=== PATIENT | female | born 1980 | race Two or more races ===

== ENCOUNTER 2023-02-27 15:10 | Inpatient (IN) | payer SELFPAY ==
[~2023-02-27] VITALS: Ht 160 cm; Wt 68.7 kg
[2023-02-27] MEDS ORDERED: DIPH25CA85 PO (15:14)
[2023-02-27] MEDS ORDERED: PRED-554 PO (15:14)
[2023-02-27] MEDS ORDERED: MethylPREDNISolone SOD SUCC 125 MG/2 ML VIAL IVP ONE (15:15)
[2023-02-27] MEDS ORDERED: EPINEPHrine 1:1,000 [1 MG/ML] VIAL IM ONE ×2 (15:15→18:45)
[2023-02-27] MEDS ORDERED: DiphenhydrAMINE HCL 50 MG/ML VIAL IVP ONE (15:15)
[2023-02-27] MEDS ORDERED: FAMOTIDINE 20 MG/2 ML VIAL IVP ONE (15:15)
[2023-02-27] MEDS ORDERED: MethylPREDNISolone SOD SUCC 125 MG/2 ML VIAL ONE (15:17)
[2023-02-27] MEDS ORDERED: DiphenhydrAMINE HCL 50 MG/ML VIAL ONE (15:17)
[2023-02-27] MEDS ORDERED: FAMOTIDINE 20 MG/2 ML VIAL ONE (15:17)
[2023-02-27] MEDS ORDERED: SODIUM CHLORIDE 0.9% 1,000 ML IV ONE (15:30)
[2023-02-27 15:35] LABS: BASOPHILS % (AUTO) 0.1 % (0.0-2.0); EOSINOPHILS % (AUTO) 0 % (1.0-6.0); HEMATOCRIT 39.5 % (36-46); HEMOGLOBIN 13.2 g/dL (12.0-16.0); LYMPHOCYTES # (AUTO) 1.1 K/uL (1.0-4.8); LYMPHOCYTES % (AUTO) 6.3 % (22.0-44.0); MEAN CORPUSCULAR HEMOGLOBIN 30.8 pg (26.0-34.0); MEAN CORPUSCULAR HGB CONC 33.5 G/dL (31.0-37.0); MEAN CORPUSCULAR VOLUME 92 fL (80-100); MONOCYTES # (AUTO) 0.4 K/uL (0.1-1.0); MONOCYTES % (AUTO) 2.6 % (2.0-9.0); NEUTROPHILS # (AUTO) 15.4 K/uL (1.8-7.7); PLATELET COUNT (AUTO) 269 K/uL (150-450); RED CELL DISTRIBUTION WIDTH 13.7 % (11.5-14.5)
[2023-02-27 15:45] LABS: ANION GAP 21 mmol/L (8-16); CALCIUM, TOTAL 9.2 mg/dL (8.8-10.5); CARBON DIOXIDE 23 mmol/L (22-29); CHLORIDE 101 mmol/L (98-107); CREATININE 0.81 mg/dL (0.60-1.30); GLOMERULAR FILTR. RATE CALC > 60 mL/min (>60); GLUCOSE,RANDOM 115 mg/dL (70-110); POTASSIUM 3.3 mmol/L (3.5-5.1); SODIUM SERUM 145 mmol/L (136-145); UREA NITROGEN, BLOOD 19 mg/dL (7-18)
[2023-02-27 15:50] LABS: ALANINE AMINOTRANSFERASE 24 U/L (12-78); ALKALINE PHOSPHATASE 75 U/L (46-116); ASPARTATE AMINOTRANSFERASE 24 U/L (15-37); BILIRUBIN,TOTAL 0.3 mg/dL (0.1-1.0); TOTAL PROTEIN, SERUM 6.8 g/dL (6.4-8.2)
[2023-02-27] MEDS ORDERED: ZOLPIDEM TARTRATE 5 MG TABLET PO PRN (20:15)
[2023-02-27] MEDS ORDERED: ACETAMINOPHEN 325 MG TABLET PO PRN (20:15)
[2023-02-27] MEDS ORDERED: MORPHINE SULFATE 2 MG/ML SYRINGE IVP PRN (20:15)
[2023-02-27] MEDS ORDERED: MAGNESIUM HYDROXIDE SUSPENSION 30 ML UDCUP PO PRN (20:15)
[2023-02-27] MEDS ORDERED: HYDROCODONE/ACETAMINOPHEN 5-325 MG TABLET PO PRN (20:15)
[2023-02-27] MEDS ORDERED: BISACODYL 10 MG RECTAL RECTAL SUPPOSITORY PR PRN (20:15)
[2023-02-27] MEDS ORDERED: ONDANSETRON HCL 4 MG/2 ML VIAL IVP PRN (20:15)
[2023-02-27] MEDS: DOCUSATE SODIUM 100 MG CAPSULE PO SCH (21:00)
[2023-02-27] MEDS: MethylPREDNISolone SOD SUCC 125 MG/2 ML VIAL IVP SCH (21:45)
[2023-02-27] MEDS: FAMOTIDINE 20 MG/2 ML VIAL IVP SCH (21:45)
[2023-02-27] MEDS: DiphenhydrAMINE HCL 50 MG/ML VIAL IVP SCH (21:45)
[2023-02-28 00:30] VITALS: BP 117/69; PULSE 96; RESP 18; TEMP 98.8
[2023-02-28] MEDS: MethylPREDNISolone SOD SUCC 125 MG/2 ML VIAL IVP SCH ×4 (00:59→18:22)
[2023-02-28] MEDS: HEPARIN SODIUM,PORCINE 5,000 UNITS/ML VIAL SQ SCH ×3 (01:00→16:00)
[2023-02-28 05:26] VITALS: BP 106/68; PULSE 81; RESP 18; TEMP 97.7
[2023-02-28 06:32] LABS: EOSINOPHILS % (AUTO) 0 % (1.0-6.0); HEMATOCRIT 34.7 % (36-46); HEMOGLOBIN 11.4 g/dL (12.0-16.0); LYMPHOCYTES # (AUTO) 0.5 K/uL (1.0-4.8); LYMPHOCYTES % (AUTO) 3.6 % (22.0-44.0); MEAN CORPUSCULAR HEMOGLOBIN 30.5 pg (26.0-34.0); MEAN CORPUSCULAR HGB CONC 32.9 G/dL (31.0-37.0); MEAN CORPUSCULAR VOLUME 93 fL (80-100); MONOCYTES # (AUTO) 0.1 K/uL (0.1-1.0); MONOCYTES % (AUTO) 0.9 % (2.0-9.0); PLATELET COUNT (AUTO) 231 K/uL (150-450); RED BLOOD CELL COUNT(AUTO) 3.75 MIL/uL (4.00-5.20); RED CELL DISTRIBUTION WIDTH 13.6 % (11.5-14.5); WHITE BLOOD COUNT (AUTO) 13.6 K/uL (4.5-11.0)
[2023-02-28 06:41] LABS: ANION GAP 9 mmol/L (8-16); CALCIUM, TOTAL 7.9 mg/dL (8.8-10.5); CARBON DIOXIDE 24 mmol/L (22-29); CHLORIDE 105 mmol/L (98-107); CREATININE 0.53 mg/dL (0.60-1.30); GLOMERULAR FILTR. RATE CALC > 60 mL/min (>60); GLUCOSE,RANDOM 168 mg/dL (70-110); POTASSIUM 3.9 mmol/L (3.5-5.1); SODIUM SERUM 138 mmol/L (136-145); UREA NITROGEN, BLOOD 15 mg/dL (7-18)
[2023-02-28 07:04] LABS: NEUTROPHILS % (AUTO) 95.5 % (40.0-70.0)
[2023-02-28] MEDS: FAMOTIDINE 20 MG/2 ML VIAL IVP SCH ×2 (09:00→21:25)
[2023-02-28] MEDS: PANTOPRAZOLE SODIUM 40 MG DR TABLET PO SCH (09:27)
[2023-02-28] MEDS: DOCUSATE SODIUM 100 MG CAPSULE PO SCH ×2 (09:28→21:26)
[2023-02-28] MEDS: DiphenhydrAMINE HCL 50 MG/ML VIAL IVP SCH ×2 (09:28→21:26)
[2023-02-28 12:04] VITALS: BP 107/68; PULSE 86; RESP 18; TEMP 98.3
[2023-02-28 15:02] VITALS: BP 110/68; PULSE 94; RESP 19; TEMP 98.1
[2023-02-28 19:20] VITALS: BP 113/63; PULSE 109; RESP 18; TEMP 98.5
[2023-02-28 23:22] VITALS: BP 117/66; PULSE 94; RESP 18; TEMP 98.6
[2023-03-01] MEDS: MethylPREDNISolone SOD SUCC 125 MG/2 ML VIAL IVP SCH ×3 (00:22→12:12)
[2023-03-01 05:23] VITALS: BP 106/63; PULSE 90; RESP 18; TEMP 98.5
[2023-03-01 07:11] VITALS: BP 119/77; PULSE 90; RESP 18; TEMP 98
[2023-03-01] MEDS: HEPARIN SODIUM,PORCINE 5,000 UNITS/ML VIAL SQ SCH ×2 (08:00)
[2023-03-01] MEDS: DiphenhydrAMINE HCL 50 MG/ML VIAL IVP SCH (08:58)
[2023-03-01] MEDS: FAMOTIDINE 20 MG/2 ML VIAL IVP SCH (08:58)
[2023-03-01] MEDS: DOCUSATE SODIUM 100 MG CAPSULE PO SCH (08:58)
[2023-03-01] MEDS: PANTOPRAZOLE SODIUM 40 MG DR TABLET PO SCH (08:58)
[2023-03-01 12:00] VITALS: BP 116/70; PULSE 91; RESP 18; TEMP 98
[2023-03-01] MEDS ORDERED: PredniSONE 20 MG TABLET PO SCH (13:00)
[2023-03-01] MEDS ORDERED: PRED-554 PO (15:16)
[2023-03-01] MEDS ORDERED: PRED5TAB2 PO ×3 (15:17→15:25)
[2023-03-01] MEDS ORDERED: FAMO20 PO (15:33)
[2023-03-01] MEDS ORDERED: EPIN0.152 SQ (15:34)
== END 2023-03-01 16:00 | disposition home or self-care (01) | DRG 189 ==
LOC: EMS 15:10 → AHU 16:31 → 5S 22:37
PROVIDERS: ADMIT Internal Medicine; ATTEND Internal Medicine
DX: J96.01 Acute respiratory failure with hypoxia (principal); J98.11 Atelectasis; T78.2XXA Anaphylactic shock, unspecified, initial encounter; E87.6 Hypokalemia; D72.829 Elevated white blood cell count, unspecified; L50.9 Urticaria, unspecified; Z79.899 Other long term (current) drug therapy; Y92.89 Other specified places as the place of occurrence of the external cause; Z90.49 Acquired absence of other specified parts of digestive tract; Z83.3 Family history of diabetes mellitus
CPT/HCPCS: 71045; 71250; 80048; 80053; 84703; 85025; 99285; J0171; J1200; J1644; J2930; J3490; 36415-L1; 36415-TC